=== PATIENT | female | born 1995 | race African-American/Black ===

== ENCOUNTER 2017-04-21 15:42 | Emergency (ER) | payer MEDICAID ==
[~2017-04-21] VITALS: Ht 157.5 cm; Wt 70.0 kg
[2017-04-21 15:46] VITALS: Ht 157.5 cm; Wt 70.0 kg
[2017-04-21] MEDS ORDERED: KETOROLAC 30 MG INJ IV STA (19:48)
[2017-04-21] MEDS ORDERED: SOD CHLORIDE 0.9% 500 ML IV STA (19:48)
[2017-04-21] MEDS ORDERED: ONDANSETRON 4 MG INJ IV STA (19:48)
[2017-04-21 20:24] LABS: BASOPHILS % 0.4 % (0.0-2.0); EOSINOPHILS % 0.4 % (0.0-7.0); HEMATOCRIT 40.5 % (37.0-47.0); LYMPHOCYTES # 2.9 10^3/ul (0.8-2.9); LYMPHOCYTES % 40.8 % (15.0-51.0); MEAN CORPUSCULAR HEMOGLOBIN 30.7 pg (29.0-33.0); MEAN CORPUSCULAR HGB CONC 34.6 g/dl (32.0-37.0); MEAN CORPUSCULAR VOLUME 88.8 fl (82.0-101.0); MEAN PLATELET VOLUME 9.1 fl (7.4-10.4); MONOCYTE # 0.5 10^3/ul (0.3-0.9); MONOCYTES % 7.3 % (0.0-11.0); NEUTROPHILS % 50.8 % (39.0-77.0); PLATELET COUNT 280 10^3/UL (140-415); RED BLOOD COUNT 4.56 10^6/ul (4.20-5.40); RED CELL DISTRIBUTION WIDTH 13.3 % (11.5-14.5)
[2017-04-21 20:41] LABS: ADD UMIC YES; UR ASCORBIC ACID NEGATIVE (NEGATIVE); UR BILIRUBIN (Dip) NEGATIVE (NEGATIVE); UR BLOOD (Dip) 3+ mg/dL (NEGATIVE); UR CLARITY SLIGHTLY CLOUDY (CLEAR); UR COLOR YELLOW (YELLOW); UR GLUCOSE (Dip) NEGATIVE (NEGATIVE); UR KETONES (Dip) TRACE mg/dL (NEGATIVE); UR LEUKOCYTE ESTERASE (Dip) NEGATIVE Leu/ul (NEGATIVE); UR MUCUS MANY /HPF (NONE SEEN); UR NITRITE (Dip) NEGATIVE (NEGATIVE); UR RBC > 182 /HPF (0-5); UR SPECIFIC GRAVITY (Dip) 1.028 (1.003-1.030); UR SQUAMOUS EPITHELIAL CELL FEW /HPF (FEW); UR TOTAL PROTEIN (Dip) 1+ mg/dl (NEGATIVE); UR UROBILINOGEN (Dip) NEGATIVE (NEGATIVE)
[2017-04-21 20:43] LABS: ALBUMIN 4.6 g/dl (3.3-4.9); ALBUMIN/GLOBULIN RATIO 1.24; BILIRUBIN,INDIRECT 0.3 mg/dl (0-1.1); BILIRUBIN,TOTAL 0.3 mg/dl (0.2-1.3); CALCIUM 9.2 mg/dl (8.4-10.2); CREATININE 0.87 mg/dl (0.44-1.00); POTASSIUM 3.8 mmol/L (3.5-5.1); TOTAL PROTEIN 8.3 g/dl (6.1-8.1)
--- NOTE | 2017-04-21 21:16 | RADRPT ---
PROCEDURE: CT abdomen and pelvis without contrast. CLINICAL INDICATION: Abdominal pain TECHNIQUE: CT scan of the abdomen and pelvis without contrast was performed. Sagittal and coronal reformatted images were obtained from the axial source images. CTDI = 9.91 mGy; DLP = 493.09 mGy-cm COMPARISON: None available. FINDINGS: Visualized lower thorax: The lung bases are clear. There is no evidence for pleural effusion. Liver, gallbladder, pancreas and spleen: The liver is normal and size, contour and attenuation. Th ere is no evidence for a liver mass or ductal dilatation. The gallbladder is unremarkable. No comm on bile duct abnormality is demonstrated. The pancreas is unremarkable. The spleen is normal in si ze. Adrenal glands and genitourinary system: The adrenal glands are normal bilaterally. The kidneys are normal and size, contour and attenuation with no evidence for masses, calculi or hydronephrosis. T he ureters are unremarkable. No urinary bladder abnormality is demonstrated. The uterus and adnexa are unremarkable. There is fluid in the cul-de-sac to the right of midline, nonspecific. Gastrointestinal system: The stomach is normal in caliber with no abnormality of significance. The small bowel is normal in caliber with no ileus, obstruction or wall thickening. The appendix and s urrounding fat are within the limits of normal. The colon shows no evidence for wall thickening or acute abnormality. There is no evidence for colitis or diverticulitis. Peritoneum, retroperitoneum, lymph nodes and vessels: The abdominal aorta is normal in caliber. The re is no evidence for atherosclerotic calcification. The inferior vena cava is unremarkable. There is no evidence for adenopathy or mass. There is no evidence of upper abdominal ascites. No pneumop eritoneum is seen Osseous structures and musculoskeletal findings: There is no fracture, lytic or blastic lesion. No muscular abnormality or soft tissue pathology is present. RPTAT:HJJR IMPRESSION: 1. Small amount of free fluid in the cul-de-sac to the right of midline is nonspecific and possibly physiologic. 2. Otherwise unremarkable noncontrast CT abdomen and pelvis. Physician Yanique Date Time Electronically viewed and signed by Physician Yanique on 04/21/2017 21:16 /
--- NOTE | 2017-04-21 21:18 | RADRPT ---
PROCEDURE: US Pelvis. CLINICAL INDICATION: Pelvic pain TECHNIQUE: Multiple sonographic images of the pelvis were obtained utilizing a transabdominal and endovaginal technique. The images were reviewed on a PACS workstation. COMPARISON: Noncontrast CT abdomen and pelvis 04/21/2017 FINDINGS: Uterus: Normal in size, contour and echogenicity with no evidence for myometrial masses. Size is est imated at 6.7 x 4.4 x 3.4 cm. Cervix: No abnormalities of significance are seen. Endometrium: Normal in thickness; 3.7 mm. Right ovary / adnexa: Normal in size estimated at 3.2 x 2.6 x 1.7 cm. No evidence for masses, norm al blood flow on Doppler interrogation. Left ovary/adnexa: Normal in size estimated at 3.5 x 2.2 x 2 cm. No evidence for solid masses, norm al blood flow on Doppler interrogation. Cul-de-sac: A small amount of free fluid is demonstrated in the posterior cul-de-sac. RPTAT:HJJR IMPRESSION: 1. Free fluid in the posterior cul-de-sac as demonstrated on the recent noncontrast CT is of uncerta in significance. 2. Otherwise unremarkable pelvic ultrasound. Physician Yanique Date Time Electronically viewed and signed by Physician Yanique on 04/21/2017 21:18 /
[2017-04-21] MEDS ORDERED: FLUC150T17 PO (21:37)
[2017-04-21] MEDS ORDERED: METR500T PO (21:37)
[2017-04-21 22:13] VITALS: BP 121/78; PULSE 76; RESP 20; TEMP 98.2
--- NOTE | 2017-04-22 00:28 | ERD ---
ER Documentation Chief Complaint Date/Time DATE: 04/22/17 TIME: 00:23 Chief Complaint PELVIC/LOWER ABD PAIN WITH WEAKNESS AND DIARRHEA HPI This patient is a 22-year-old female presenting to the emergency department with complaints of pelvic and lower abdominal pain associated with diarrhea and general feeling of fatigue ongoing intermittently for the past 3 months. The patient has not been worked up for these complaints previously. Diarrhea worsened this morning. She reports that her stool has had watery consistency for the past 6 months. She had a urinary tract infection recently and she was treated with an unknown antibiotic. Her last day of the antibiotic was today. She denies fevers, chills, or other symptoms currently. ROS All systems reviewed and are negative except as per history of present illness. Medications Home Meds Active Scripts Fluconazole* (Diflucan*) 150 Mg Tablet, 150 MG PO ONCE, #1 TAB Prov:MARCO CARLOS PA-C 04/21/17 Metronidazole* (Flagyl*) 500 Mg Tablet, 500 MG PO BID for 7 Days, #14 TAB Prov:MARCO CARLOS PA-C 04/21/17 Allergies Allergies: Coded Allergies: No Known Allergy (Unverified , 01/11/16) PMhx/Soc Medical and Surgical Hx: pt denies Medical Hx, pt denies Surgical Hx Hx Alcohol Use: No Hx Substance Use: No Hx Tobacco Use: No Smoking Status: Never smoker Physical Exam Vitals Vital Signs Date Time Temp Pulse Resp B/P Pulse Ox O2 Delivery O2 Flow Rate FiO2 04/21/17 22:13 98.2 76 20 121/78 100 Room Air 04/21/17 15:46 98.9 77 16 117/73 100 Physical Exam Const: Nontoxic, well-appearing female in no acute distress. Head: Atraumatic Eyes: Normal Conjunctiva ENT: Normal External Ears, Nose and Mouth. Neck: Full range of motion..~ No meningismus. Resp: Clear to auscultation bilaterally Cardio: Regular rate and rhythm, no murmurs Abd: Soft, non tender, non distended. Normal bowel sounds. No McBurney's point tenderness. No rebound tenderness or guarding. There is mild subjective tenderness palpation of the left suprapubic area. Skin: No petechiae or rashes Back: No midline or flank tenderness Ext: No cyanosis, or edema Neur: Awake and alert Psych: Normal Mood and Affect Result Diagram: 04/21/17201104/21/172011 Results 24 hrs Laboratory Tests Test 04/21/17 20:10 04/21/17 20:12 Urine Color YELLOW Urine Clarity SLIGHTLY CLOUDY Urine pH 5.0 Urine Specific [place] 1.028 Urine Ketones TRACEmg/dL Urine Nitrite NEGATIVEmg/dL Urine Bilirubin NEGATIVEmg/dL Urine Urobilinogen NEGATIVEmg/dL Urine Leukocyte Esterase NEGATIVELeu/ul Urine Microscopic RBC > 182/HPF Urine Microscopic WBC 22/HPF Urine Squamous Epithelial Cells FEW/HPF Urine Mucus MANY/HPF Urine Hemoglobin 3+mg/dL Urine Glucose NEGATIVEmg/dL Urine Total Protein 1+mg/dl White Blood Count 7.010^3/ul Red Blood Count 4.5610^6/ul Hemoglobin 14.0g/dl Hematocrit 40.5% Mean Corpuscular Volume 88.8fl Mean Corpuscular Hemoglobin 30.7pg Mean Corpuscular Hemoglobin Concent 34.6g/dl Red Cell Distribution Width 13.3% Platelet Count 76648^3/UL Mean Platelet Volume 9.1fl Neutrophils % 50.8% Lymphocytes % 40.8% Monocytes % 7.3% Eosinophils % 0.4% Basophils % 0.4% Nucleated Red Blood Cells % 0.0/100WBC Neutrophils # (Manual) 3.610^3/ul Lymphocytes # 2.910^3/ul Monocytes # 0.510^3/ul Eosinophils # 0.010^3/ul Basophils # 0.010^3/ul Nucleated Red Blood Cells # 0.010^3/ul Sodium Level 143mmol/L Potassium Level 3.8mmol/L Chloride Level 102mmol/L Carbon Dioxide Level 26mmol/L Anion Gap 19 Blood Urea Nitrogen 15mg/dl Creatinine 0.87mg/dl Glucose Level 79mg/dl Calcium Level 9.2mg/dl Total Bilirubin 0.3mg/dl Direct Bilirubin 0.00mg/dl Indirect Bilirubin 0.3mg/dl Aspartate Amino Transf (AST/SGOT) 29IU/L Alanine Aminotransferase (ALT/SGPT) 28IU/L Alkaline Phosphatase 77IU/L Total Protein 8.3g/dl Albumin 4.6g/dl Globulin 3.70g/dl Albumin/Globulin Ratio 1.24 Lipase 21U/L Current Medications Medications (Trade) Dose Ordered Sig/Sugey Route PRN Reason Start Time Stop Time Status Last Admin Dose Admin Sodium Chloride (NS) 500 ml @ 500 mls/hr Q1H STAT IV 04/21/17 19:48 04/21/17 20:47 DC 04/21/17 20:16 Ondansetron HCl (Zofran Inj) 4 mg ONCE STAT IV 04/21/17 19:48 04/21/17 19:59 DC 04/21/17 20:14 Ketorolac Tromethamine (Toradol) 30 mg ONCE STAT IV 04/21/17 19:48 04/21/17 19:59 DC 04/21/17 20:15 Procedures/MDM EMERGENCY DEPARTMENT COURSE / MEDICAL DECISION MAKING: This is a 22-year-old female who comes to the emergency room secondary to complaints of abdominal pain, fatigue, and diarrhea. The patient was given IV Toradol and IV Zofran in the department. On re- evaluation, the patient was feeling improved. Lab results reviewed. CBC: No significant acute abnormalities Chemistry: No significant acute abnormalities UA: Not concerning for urinary tract infection Lipase: Within normal limits at 21. Radiology: PROCEDURE: CT abdomen and pelvis without contrast. CLINICAL INDICATION: Abdominal pain TECHNIQUE: CT scan of the abdomen and pelvis without contrast was performed. Sagittal and coronal reformatted images were obtained from the axial source images. CTDI = 9.91 mGy; DLP = 493.09 mGy-cm COMPARISON: None available. FINDINGS: Visualized lower thorax: The lung bases are clear. There is no evidence for pleural effusion. Liver, gallbladder, pancreas and spleen: The liver is normal and size, contour and attenuation. There is no evidence for a liver mass or ductal dilatation. The gallbladder is unremarkable. No common bile duct abnormality is demonstrated. The pancreas is unremarkable. The spleen is normal in size. Adrenal glands and genitourinary system: The adrenal glands are normal bilaterally. The kidneys are normal and size, contour and attenuation with no evidence for masses, calculi or hydronephrosis. The ureters are unremarkable. No urinary bladder abnormality is demonstrated. The uterus and adnexa are unremarkable. There is fluid in the cul-de-sac to the right of midline, nonspecific. Gastrointestinal system: The stomach is normal in caliber with no abnormality of significance. The small bowel is normal in caliber with no ileus, obstruction or wall thickening. The appendix and surrounding fat are within the limits of normal. The colon shows no evidence for wall thickening or acute abnormality. There is no evidence for colitis or diverticulitis. Peritoneum, retroperitoneum, lymph nodes and vessels: The abdominal aorta is normal in caliber. There is no evidence for atherosclerotic calcification. The inferior vena cava is unremarkable. There is no evidence for adenopathy or mass. There is no evidence of upper abdominal ascites. No pneumoperitoneum is seen Osseous structures and musculoskeletal findings: There is no fracture, lytic or blastic lesion. No muscular abnormality or soft tissue pathology is present. RPTAT:HJJR IMPRESSION: 1. Small amount of free fluid in the cul-de-sac to the right of midline is nonspecific and possibly physiologic. 2. Otherwise unremarkable noncontrast CT abdomen and pelvis. Physician Yanique Date Time Electronically viewed and signed by Physician Yanique on 04/21/2017 21:16 PROCEDURE: US Pelvis. CLINICAL INDICATION: Pelvic pain TECHNIQUE: Multiple sonographic images of the pelvis were obtained utilizing a transabdominal and endovaginal technique. The images were reviewed on a PACS workstation. COMPARISON: Noncontrast CT abdomen and pelvis 04/21/2017 FINDINGS: Uterus: Normal in size, contour and echogenicity with no evidence for myometrial masses. Size is estimated at 6.7 x 4.4 x 3.4 cm. Cervix: No abnormalities of significance are seen. Endometrium: Normal in thickness; 3.7 mm. Right ovary / adnexa: Normal in size estimated at 3.2 x 2.6 x 1.7 cm. No evidence for masses, normal blood flow on Doppler interrogation. Left ovary/adnexa: Normal in size estimated at 3.5 x 2.2 x 2 cm. No evidence for solid masses, normal blood flow on Doppler interrogation. Cul-de-sac: A small amount of free fluid is demonstrated in the posterior cul- de-sac. RPTAT:HJJR IMPRESSION: 1. Free fluid in the posterior cul-de-sac as demonstrated on the recent noncontrast CT is of uncertain significance. 2. Otherwise unremarkable pelvic ultrasound. Physician Yanique Date Time Electronically viewed and signed by Physician Yanique on 04/21/2017 21:18 The primary diagnosis is acute pain and female pelvis of unclear etiology, symptoms may be secondary to a mild and uncomplicated pelvic inflammatory disease, or vaginitis. She will be treated as an outpatient with metronidazole twice daily for 7 days as well as Diflucan to be taken one time after the course of antibiotics. She is to have close follow-up with her primary care physician and [employer] physician. I have low suspicion for sepsis, complicated pyelonephritis, complicated pelvic inflammatory disease, deep tissue infection, or other emergent conditions at this time. Discharge: I have discussed the lab results and diagnostic findings with the patient and answered any questions or concerns. The patient was advised to followup with their PMD in 1-2 days and to return to the Emergency Department if there are any new or worsening symptoms. The patient understood and agreed with the diagnosis, treatment and plan. The patient is stable for discharge at this time. Departure Diagnosis: Primary Impression: Acute pain in female pelvis Condition: Fair Patient Instructions: Vaginal Infection: Bacterial Vaginosis, Vaginal Infection : Yeast (Candidiasis), Pelvic Pain, Unknown Cause Referrals: [facility] YOU HAVE RECEIVED A MEDICAL SCREENING EXAM AND THE RESULTS INDICATE THAT YOU DO NOT HAVE A CONDITION THAT REQUIRES URGENT TREATMENT IN THE EMERGENCY DEPARTMENT. FURTHER EVALUATION AND TREATMENT OF YOUR CONDITION CAN WAIT UNTIL YOU ARE SEEN IN YOUR DOCTORS OFFICE WITHIN THE NEXT 1-2 DAYS. IT IS YOUR RESPONSIBILITY TO MAKE AN APPOINTMENT FOR FOLOW-UP CARE. IF YOU HAVE A PRIMARY DOCTOR --you should call your primary doctor and schedule an appointment IF YOU DO NOT HAVE A PRIMARY DOCTOR YOU CAN CALL OUR PHYSICIAN REFERRAL HOTLINE AT IF YOU CAN NOT AFFORD TO SEE A PHYSICIAN YOU CAN CHOSE FROM THE FOLLOWING [facility] [address] [facility] [address] [facility] [address] [facility] [address] [facility]. [facility] [address]. [facility] [address] Additional Instructions: Follow up with your PCP within the next 1-3 days for a repeat evaluation. If you require a referral to a specialist, your Primary Care Provider may be able to provide this for you. In most patient cases, a referral is not required. If you have further questions regarding this matter, please ask your Primary Care Provider. Return the the emergency department immediately if symptoms worsen or change. If you have any questions regarding medications, ask your pharmacist or us before you leave. If any adverse reactions, occur while taking your medications, discontinue the treatment and return to the emergency department immediately. If any new or worsening symptoms, uncontrolled fevers, or other unexplained symptoms occur, return to the emergency department immediately. Take your medications as directed, and complete the entire course of treatment. MARCO CARLOS PA-C Apr 22, 2017 00:28
== END 2017-04-21 22:15 | disposition home or self-care (01) ==
LOC: EDSEX 15:42 → FTE 15:42
DX: R10.2 Pelvic and perineal pain (principal)
CPT/HCPCS: 36415; 74176; 76830; 76856; 80053; 81001; 83690; 85025; 87591; 96374; 96375; J1885; J2405; J7040; Z7502